=== PATIENT | female | born 1950 | race Caucasian/White ===

== ENCOUNTER → 2020-06-08 | Outpatient (CLI) | payer MEDICARE | LOC: KOH-I 10:51 | DX: M25.551 Pain in right hip (principal); M25.512 Pain in left shoulder; M25.561 Pain in right knee; M17.11 Unilateral primary osteoarthritis, right knee; M16.11 Unilateral primary osteoarthritis, right hip | CPT/HCPCS: 73030; 73502; 73562 ==

== ENCOUNTER → 2021-05-27 | Outpatient (CLI) | payer MEDICARE | LOC: CT 10:18 | DX: R63.4 Abnormal weight loss (principal); K59.00 Constipation, unspecified | CPT/HCPCS: 71260; Q9967 ==